=== PATIENT | male | born 1995 | race African-American/Black ===

== ENCOUNTER 2020-06-10 10:14 | Inpatient (IN) | payer OTHER ==
[~2020-06-10] VITALS: Ht 182.9 cm; Wt 80.9 kg
[2020-06-10 11:45] LABS: HEMATOCRIT 43.5 % (42.0-52.0); HEMOGLOBIN 14.1 g/dl (13.5-17.5); MEAN CORPUSCULAR HEMOGLOBIN 29.9 pg (27.0-33.0); MEAN CORPUSCULAR HGB CONC 32.4 g/dl (32.0-36.5); MEAN CORPUSCULAR VOLUME 92.2 fl (80.0-96.0); PLATELET COUNT, AUTOMATED 206 10^3/uL (150-450); RED BLOOD COUNT 4.72 10^6/uL (4.30-6.10); WHITE BLOOD COUNT 5.7 10^3/uL (4.0-10.0)
--- OUTSIDE RECORDS SUMMARY | 2020-06-10 12:08 | CCD ---
Author Author [facility] Organization [facility] Address Unknown Phone Unavailable Support Name Relationship Address Phone [facility] Next Of Kin [address] [place] [address] Unavailable KAMI IVETTE Next Of [place] [address] [place] [address] Re-disclosure Warning The records that you are about to access may contain information from federally-assisted alcohol or drug abuse programs. If such information is present, then the following federally mandated warning applies: This information has been disclosed to you from records protected by federal confidentiality rules (42 CFR part 2). The federal rules prohibit you from making any further disclosure of this information unless further disclosure is expressly permitted by the written consent of the person to whom it pertains or as otherwise permitted by 42 CFR part 2. A general authorization for the release of medical or other information is NOT sufficient for this purpose. The Federal rules restrict any use of the information to criminally investigate or prosecute any alcohol or drug abuse patient.The records that you are about to access may contain highly sensitive health information, the redisclosure of which is protected by Article 27-F of the [facility] Public Health law. If you continue you may have access to information: Regarding HIV / AIDS; Provided by facilities licensed or operated by the [facility] Office of Mental Health; or Provided by the [facility] Office for People With Developmental Disabilities. If such information is present, then the following [facility] mandated warning applies: This information has been disclosed to you from confidential records which are protected by state law. State law prohibits you from making any further disclosure of this information without the specific written consent of the person to whom it pertains, or as otherwise permitted by law. Any unauthorized further disclosure in violation of state law may result in a fine or mcc sentence or both. A general authorization for the release of medical or other information is NOT sufficient authorization for further disc losure. Insurance Providers Payer name Policy type / Coverage type Policy ID Covered libertarian ID Covered libertarian's relationship to redmond Policy Red[place] Plan Information [facility] ACTIVE [facility] [id number]
[2020-06-10 12:10] LABS: AMPHETAMINES LEVEL URINE NEGATIVE (NEGATIVE); BARBITURATES URINE NEGATIVE (NEGATIVE); BENZODIAZEPINES URINE NEGATIVE (NEGATIVE); CANNABINOIDS URINE NEGATIVE (NEGATIVE); COCAINE METABOLITE URINE NEGATIVE (NEGATIVE); METHADONE URINE NEGATIVE (NEGATIVE); OPIATES URINE NEGATIVE (NEGATIVE); PHENCYCLIDINE URINE NEGATIVE (NEGATIVE)
[2020-06-10 12:18] LABS: ACETAMINOPHEN LEVEL < 2.0 UG/ML (10.0-30.0); ALBUMIN 4.5 GM/DL (3.2-5.2); ALT/SGPT 30 U/L (12-78); BILIRUBIN,DIRECT 0.3 MG/DL (0.0-0.2); BLOOD UREA NITROGEN 16 MG/DL (7-18); CALCIUM LEVEL 10.1 MG/DL (8.5-10.1); CARBON DIOXIDE LEVEL 27 MEQ/L (21-32); CHLORIDE LEVEL 109 MEQ/L (98-107); CREATININE FOR GFR 1.32 MG/DL (0.70-1.30); ETHYL ALCOHOL (ETHANOL) < 0.003 % (0.000-0.010); GLOMERULAR FILTRATION RATE > 60.0 (>60); GLUCOSE, FASTING 96 MG/DL (70-100); POTASSIUM SERUM 4.2 MEQ/L (3.5-5.1); SALICYLATE LEVEL < 1.7 MG/DL (5.0-30.0); SODIUM LEVEL 142 MEQ/L (136-145); TOTAL PROTEIN 7.6 GM/DL (6.4-8.2)
[2020-06-10] MEDS ORDERED: MOM 30ML SUSPENSION UDC PO PRN (13:30)
[2020-06-10] MEDS ORDERED: IBUPROFEN 400MG TAB PO PRN (13:30)
[2020-06-10] MEDS ORDERED: MAALOX 30 ML SUSP *UDC PO PRN (13:30)
--- OUTSIDE RECORDS SUMMARY | 2020-06-10 13:45 | CCD ---
Author Author [facility] Organization [facility] Address Unknown Phone Unavailable Support Name Relationship Address Phone [facility] Next Of Kin [address] [address] Unavailable KAMI IVETTE Next Of [address] [place] [address] Re-disclosure Warning The records that you are [...] is protected by Article 27-F of the [facility] Public Health law. If you continue you may have access to information: Regarding HIV / AIDS; Provided by facilities licensed or operated by the [facility] Office of Mental Health; or Provided by the [facility] Office for People With Developmental Disabilities. If such information is present, then the following [facility] mandated warning applies: This information has [...] law may result in a fine or senior living sentence or both. A general authorization for the release of medical or other information is NOT sufficient authorization for further disc losure. Insurance Providers Payer name Policy type / Coverage type Policy ID Covered libertarian ID Covered libertarian's relationship to redmond Policy Red[place] Plan Information [facility]IVE [facility] [id number]
[2020-06-10 18:18] VITALS: BP 119/59
[2020-06-10] MEDS: traZODone 50 MG TAB PO PRN (20:05)
[2020-06-11 06:02] VITALS: BP 154/64
--- NOTE | 2020-06-11 11:18 | MHHPEPDOC ---
General Date Of Admission: Jun 11, 2020 Legal Status: 9.39 Chief Complaint I am depressed and thinking of suicide " History of Present Illness HISTORY OF THE PRESENT ILLNESS: Patient is a 24 -year-old , male, who complains of depression with suicidal thoughts. He states she's been wanting to slit his wrists. He has been in basic training. He states that when he was 19. He was hospitalized with a plan to jump off a bridge. He also in the past has held a knife to his chest. His plan to jump off a bridge occurred when he was in [employer]. He also has had numerous highs where he has been overactive and grandiose. These highs have lasted for over 2 weeks he noticed he has had that condition for a couple of years. He states he was hospitalized for a week, 4-5 years ago and was put on lithium, but he did not take it. 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 He has a degree in political science. He is now very depressed. He has lived in [place]. He states, "there is a rizvi in his head". He has no significant medical history he has had a history of surgery to his on any. He has had legal issue where he was charged with a misdemeanor for using drugs. He denies drug use now or alcohol use. He had a slight concussion in April. Presently denies auditory hallucinations. He denies visual hallucinations, obsessions, compulsions, phobias, but feels he is preoccupied with the past and suicidal gestures and attempts he has made. He considers that he has bipolar disorder, which is also included episodes of high and low sex drive Psychiatric Review of Systems Depression (2 or more weeks): depressed mood, suicidal thoughts Griselda (4 or more days of): expansive mood, grandiosity Psychosis: denies PTSD: denies Anxiety: denies Past Psychiatric History Previous Psychiatric Diagnosis: He has been diagnosed with bipolar disorder, but did not take medication. Previous Psychiatric Admissions:. He was hospitalized 5 years ago. Suicide Attempts:. He has had numerous suicide gestures and attempts. Psychiatric Follow-up:. No follow-up. Psychiatric medications:, Has not taken medications. Past Medical History Medical Problems No significant medical problems Head Injury: Yes Seizures: No Hospitalizations: Yes Surgeries: Yes Family Medical/Psychiatric HX Medical Problems Patient is adopted and family medical history unclear. He states his biological father is in half-way and his mother has been in and out of hospitals and recently. The patient is unable to know if there was psychiatric disorders involved Psychiatric Disorders: Yes Addiction: No Suicide Attemps/Completions: No Addiction History denies Social History Childhood: Patient was adopted and was moved to [facility] and felt his childhood was difficult in that he "did not fit in.". Abuse/Trauma: None described. Current Living Situation:. [employer]. Education: Bachelor's in [employer] science. Employment: [employer]. Social Support:. No obvious social support. Legal:, No obvious legal history. Marital: Single. Mental Status Examination General Appearance: well groomed Build: average Demeanor: average Eye Contact: average Activity: average Behavior: cooperative Speech: clear Mood: depressed Mood Presently depressed Affect: flat Thought Process: slow, intact Thought Content (Other): appropriate Thought Content (Aggressive): none reported Perception (Hallucinations): none reported Perception (Other): none reported Cognition (Impairment of): none reported Cognition(Intelligence Est.): average, above average Oriented: Awake, Alert, Oriented times three Insight: fair Judgment: Fair Psychosis: Denies Diagnoses Bipolar disorder, depressed A-FIB/CHADSVASC A-FIB History Current/History of A-Fib/PAF?: No Current PO Anticoag Therapy: No Age/Risk Factor Scoring CHADSVASC: CHADSVASC Response (Comments) Value Age Risk Factor Age < 65 years old 0 Gender Risk Factor Male 0 Hx of CHF No 0 Hx of HTN No 0 Hx of Stroke/TIA/or VTE No 0 Hx of Diabetes No 0 Hx of Vascular Disease No 0 Total 0 Treatment Treatment ordered: NONE Initial Treatment Plan 1. Patient was admitted on a [9.39] status. 2. Complete history was obtained. 3. With patients permission, family will be contacted and database will be expanded. 4. Patients medication regimen will be reviewed and changed accordingly. 5. Patient will be provided with protected environment. 6. Patient will be treated with individual, group, and milieu therapies. 7. Patient will receive supportive psych-education. 8. Discharge planning will commence immediately. 9. Outpatient follow-up treatment will be strongly recommended. 10. The initial treatment plan will focus initially on: * Depression. * Risk for suicide. ESTIMATED LENGTH OF STAY: - DAYS. TIME SPENT COUNSELING AND COORDINATING INITIAL CARE: minutes. Vital Signs Vital Signs Date Time Temp Pulse Resp B/P (MAP) Pulse Ox O2 Delivery O2 Flow Rate FiO2 06/11/20 06:02 98.5 76 18 154/64 (94) 96 Room Air Laboratory Data 24H Labs Laboratory Tests 2 06/10/20 11:27: Nucleated Red Blood Cells % (auto) 0.0, Anion Gap 6L, Glomerular Filtration Rate > 60.0, Calcium Level 10.1, Total Bilirubin 1.0, Direct Bilirubin 0.3H, Aspartate Amino Transf (AST/SGOT) 39H, Alanine Aminotransferase (ALT/SGPT) 30, Alkaline Phosphatase 62, Total Protein 7.6, Albumin 4.5, Albumin/Globulin Ratio 1.5, Thyroid Stimulating Hormone (TSH) 1.230, Salicylates Level < 1.7L, Urine Opiates Screen NEGATIVE, Urine Methadone Screen NEGATIVE, Acetaminophen Level < 2.0L, Urine Barbiturates Screen NEGATIVE, Urine Phencyclidine Screen NEGATIVE, Urine Amphetamines Screen NEGATIVE, Urine Benzodiazepines Screen NEGATIVE, Urine Cocaine Metabolite Screen NEGATIVE, Urine Cannabinoids Screen NEGATIVE, Ethyl Alcohol Level < 0.003 06/10/20 13:55: Coronavirus (COVID-19)(PCR) NEGATIVE CBC/BMP Laboratory Tests 06/10/20 11:27 Medications No Active Prescriptions or Reported Meds Allergies Coded Allergies: amoxicillin (Verified Allergy, Intermediate, hives, 06/10/20) ELLI CORNEJO MD Jun 11, 2020 11:18
--- NOTE | 2020-06-11 19:07 | HPEPDOC ---
General Date of Admission Jun 10, 2020 at 13:30 Date of Service: Jun 11, 2020 Chief Complaint The patient is a 24-year-old male admitted with a reason for visit of Depressive Disorder. 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 He is being medically examined today. He does not offer any complaints today. Home Medications No Active Prescriptions or Reported Meds Allergies Coded Allergies: amoxicillin (Verified Allergy, Intermediate, hives, 06/10/20) Past Medical History Medical History Depression, Griselda Surgical History lazy eye surgery, umbilical hernia repair as a child Family History Patient is adopted and family medical history unclear. He states his biological father is in skilled nursing and his mother has been in and out of hospitals and recently. Social History * Smoker: chew (tobacco) Alcohol: Denies Drugs: denies A-FIB/CHADSVASC A-FIB History Current/History of A-Fib/PAF?: No Review of Systems Constitutional: Denies: Chills, Fever, Night Sweats Eyes: Denies: Pain, Vision change ENT: Denies: Head Aches, Ear Pain, Dysphagia Skin: Denies: Rash, Lesions, Breakdown Pulmonary: Denies: Dyspnea, Cough Cardiovascular: Denies: Chest Pain, Palpitations, Orthopnea, Paroxysmal Noc. Dyspnea, Lt Headedness Gastrointestinal: Denies: Nausea, Vomiting, Abdominal Pain, Diarrhea Genitourinary: Denies: Dysuria, Frequency, Incontinence, Retention Hematologic: Denies: Bruising, Bleeding Excessively Musculoskeletal: Denies: Neck Pain, Back Pain, Joint Pain, Muscle Pain, Spasms Neurological: Denies: Weakness, Numbness, Change in speech, Confusion Psych: Reports: Depression; Denies: Memory Issues Physical Examination General Exam: Positive: Alert, No Acute Distress Eye Exam: Positive: PERRLA, Conjunctiva & lids normal, EOMI; Negative: Sclera icteric ENT Exam: Positive: Atraumatic, Mucous membr. moist/pink, Pharynx Normal Neck Exam: Positive: Supple; Negative: JVD, thyromegaly Chest Exam: Positive: Clear to auscultation, Normal air movement Heart Exam: Positive: Rate Normal, Regular Rhythm, Normal S1, Normal S2; Negative: Murmurs, Rubs Abdomen Exam: Positive: Normal bowel sounds, Soft; Negative: Tenderness, Hepatospenomegaly Extremity Exam: Positive: Normal pulses; Negative: Clubbing, Cyanosis, Edema Skin Exam: Positive: Nl turgor and temperature; Negative: Breakdown, Lesion Vital Signs Vital Signs Date Time Temp Pulse Resp B/P (MAP) Pulse Ox O2 Delivery O2 Flow Rate FiO2 06/11/20 06:02 98.5 76 18 154/64 (94) 96 Room Air 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 He does not offer any complaints today. Depression as per psychiatry No active medical problems at this time Plan / VTE VTE Prophylaxis Ordered?: No SPRING MCCARTHY MD Jun 11, 2020 17:18
[2020-06-11 19:10] VITALS: BP 131/72
[2020-06-11] MEDS: traZODone 50 MG TAB PO PRN (20:11)
[2020-06-12 06:11] VITALS: BP 124/76
--- NOTE | 2020-06-12 16:42 | MHIPNPDOC ---
[facility] Progress Note Progress Note DATE OF SERVICE: 06/12/20 HISTORY: Describes a long-standing history of bipolar disorder, untreated. Presently under stress with responsibilities in the [employer]. VITAL SIGNS: See below. NEW TEST RESULTS: . CURRENT MEDICATIONS: See below. MENTAL STATUS EXAMINATION: Patient is a 24-year old male, who is, complaining of severe mood swings, untreated for many years. Speech: Is, quiet. Language skills are, intact. Thought processes including:, Low mood and the stress of the [employer]. Thought content: As above. Abstract reasoning, and computation:. able to Abstract. Description of associations: No loose association. Description of abnormal or psychotic thoughts:. No psychotic thought noted. Judgment: Fair. Insight:. fair Orientation: 3. Recent and remote memory: Intact. Attention span and concentration:. Diminished. Language: Intact. Fund of knowledge: Full. Mood:, Low. Affect: Congruent. DIAGNOSES: 1. Bipolar disorder. 2., Stressors of the [employer]. 3. None. ASSESSMENT: As above MANAGEMENT PLAN:, We will begin Depakote and fluoxetine as attempt to treat his mood disorder. TIME SPENT: 30 minutes. Vital Signs Vital Signs Date Time Temp Pulse Resp B/P (MAP) Pulse Ox O2 Delivery O2 Flow Rate FiO2 06/12/20 06:11 97.7 62 18 124/76 (92) 100 Room Air Current Medications Current Medications Medications (Trade) Dose Ordered Sig/Pedro Route PRN Reason Start Time Stop Time Status Last Admin Dose Admin Al Hydrox/Mg Hydrox/Simethicone (Mylanta) 30 ml Q4HP PRN PO HEARTBURN/INDIGESTION 06/10/20 13:30 Divalproex Sodium (Depakote Er) 250 mg BID PO 06/12/20 21:00 UNV Fluoxetine HCl (PROzac) 20 mg DAILY PO 06/13/20 09:00 UNV Home Med (Med Rec Complete!) ASDIRECTED XX 06/10/20 13:25 06/10/20 13:31 DC Ibuprofen (Advil) 400 mg Q6HP PRN PO PAIN 06/10/20 13:30 Magnesium Hydroxide (Milk Of Magnesia) 30 ml DAILYPRN PRN PO CONSTIPATION 06/10/20 13:30 Trazodone HCl (Desyrel) 50 mg QHSP PRN PO INSOMNIA 06/10/20 13:30 06/11/20 20:11 Allergies Coded Allergies: amoxicillin (Verified Allergy, Intermediate, hives, 06/10/20) ELLI CORNEJO MD Jun 12, 2020 16:42
[2020-06-12 17:28] VITALS: BP 141/67
[2020-06-12] MEDS ORDERED: DIVALPROEX 250MG *ER* TAB PO SCH (21:00)
[2020-06-13 06:27] VITALS: BP 135/77
[2020-06-13] MEDS: DIVALPROEX 250MG *ER* TAB PO SCH ×3 (09:45→20:46)
[2020-06-13] MEDS: FLUoxetine 20 MG CAP PO SCH (09:45)
--- NOTE | 2020-06-13 14:11 | MHIPNPDOC ---
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 VITAL SIGNS: See below. NEW TEST RESULTS: None. CURRENT MEDICATIONS: See below. MENTAL STATUS EXAMINATION: Patient is a 24-year old male, who is having difficulties in the [employer] and presenting with a case of bipolar disorder of many years untreated. Speech: Is, quiet. Language skills are intact Thought processes including:. No disturbances in thought processes. Patient is depressed. Thought content: As above. Abstract reasoning, and computation:.able to Abstract. Description of associations: No loose association. Description of abnormal or psychotic thoughts:. No psychotic thought noted. Judgment:. Fair. Insight: Fair. Orientation: 3. Recent and remote memory: Intact. Attention span and concentration:. Intact. Language: No disturbance. Fund of knowledge: Full. Mood: Euthymic. Affect:, Flat. DIAGNOSES: 1. Bipolar disorder by history. 2., Stressors of [employer] life. 3. none ASSESSMENT: As above MANAGEMENT PLAN:. Continue use of Depakote and monitor. TIME SPENT: 30 minutes. Vital Signs Vital Signs Date Time Temp Pulse Resp B/P (MAP) Pulse Ox O2 Delivery O2 Flow Rate FiO2 06/13/20 08:50 Room Air 06/13/20 06:27 98.4 67 14 135/77 (96) 98 Current Medications Current Medications Medications (Trade) Dose Ordered Sig/Pedro Route PRN Reason Start Time Stop Time Status Last Admin Dose Admin Al Hydrox/Mg Hydrox/Simethicone (Mylanta) 30 ml Q4HP PRN PO HEARTBURN/INDIGESTION 06/10/20 13:30 Divalproex Sodium (Depakote Er) 250 mg BID PO 06/12/20 21:00 06/13/20 07:33 DC 06/12/20 22:01 Divalproex Sodium (Depakote Er) 250 mg TID PO 06/13/20 09:00 06/13/20 09:45 Fluoxetine HCl (PROzac) 20 mg DAILY PO 06/13/20 09:00 06/13/20 09:45 Home Med (Med Rec Complete!) ASDIRECTED XX 06/10/20 13:25 06/10/20 13:31 DC Ibuprofen (Advil) 400 mg Q6HP PRN PO PAIN 06/10/20 13:30 Magnesium Hydroxide (Milk Of Magnesia) 30 ml DAILYPRN PRN PO CONSTIPATION 06/10/20 13:30 Trazodone HCl (Desyrel) 50 mg QHSP PRN PO INSOMNIA 06/10/20 13:30 06/11/20 20:11 Allergies Coded Allergies: amoxicillin (Verified Allergy, Intermediate, hives, 06/10/20) ELLI CORNEJO MD Jun 13, 2020 13:03
[2020-06-13 16:51] VITALS: BP 129/89
[2020-06-13] MEDS: traZODone 50 MG TAB PO PRN (20:46)
[2020-06-14 06:48] VITALS: BP 144/64
[2020-06-14] MEDS: FLUoxetine 20 MG CAP PO SCH (08:15)
[2020-06-14] MEDS: DIVALPROEX 250MG *ER* TAB PO SCH ×3 (08:16→20:55)
--- NOTE | 2020-06-14 16:58 | MHIPNPDOC ---
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 VITAL SIGNS: See below. NEW TEST RESULTS:. Depakote level ordered for Monday. CURRENT MEDICATIONS: See below. MENTAL STATUS EXAMINATION: Patient is a 24-year old male, who is. Euthymic but feeling his medications are helping. Speech: Is. No gross abnormalities. Language skills are. No gross abnormalities. Thought processes including: No gross abnormalities. Thought content: Concerned about army life. Abstract reasoning, and computation: Able to abstract. Description of associations: no Loose associations. Description of abnormal or psychotic thoughts: No abnormal psychotic thought. Judgment: Questionable. Insight:. Fair. Orientation: 3. Recent and remote memory: Intact. Attention span and concentration: Intact. Language:. No gross abnormality. Fund of knowledge: Reasonable. Mood: Good. Affect: Flat. DIAGNOSES: 1.. Bipolar disorder by history. 2., Stressors of army life. 3. None. ASSESSMENT:, As above MANAGEMENT PLAN:, Will meet with staff. Continue medications. Depakote level Monday. TIME SPENT: 30 minutes. Vital Signs Vital Signs Date Time Temp Pulse Resp B/P (MAP) Pulse Ox O2 Delivery O2 Flow Rate FiO2 06/14/20 08:25 Room Air 06/14/20 06:48 98.0 80 16 144/64 (90) 99 Current Medications Current Medications Medications (Trade) Dose Ordered Sig/Pedro Route PRN Reason Start Time Stop Time Status Last Admin Dose Admin Al Hydrox/Mg Hydrox/Simethicone (Mylanta) 30 ml Q4HP PRN PO HEARTBURN/INDIGESTION 06/10/20 13:30 Divalproex Sodium (Depakote Er) 250 mg BID PO 06/12/20 21:00 06/13/20 07:33 DC 06/12/20 22:01 Divalproex Sodium (Depakote Er) 250 mg TID PO 06/13/20 09:00 06/14/20 16:01 Fluoxetine HCl (PROzac) 20 mg DAILY PO 06/13/20 09:00 06/14/20 08:15 Home Med (Med Rec Complete!) ASDIRECTED XX 06/10/20 13:25 06/10/20 13:31 DC Ibuprofen (Advil) 400 mg Q6HP PRN PO PAIN 06/10/20 13:30 Magnesium Hydroxide (Milk Of Magnesia) 30 ml DAILYPRN PRN PO CONSTIPATION 06/10/20 13:30 Trazodone HCl (Desyrel) 50 mg QHSP PRN PO INSOMNIA 06/10/20 13:30 06/13/20 20:46 Allergies Coded Allergies: amoxicillin (Verified Allergy, Intermediate, hives, 06/10/20) ELLI CORNEJO MD Jun 14, 2020 16:58
[2020-06-14 18:39] VITALS: BP 150/76
[2020-06-14] MEDS: traZODone 50 MG TAB PO PRN (20:55)
[2020-06-15 06:26] VITALS: BP 127/62
[2020-06-15] MEDS: FLUoxetine 20 MG CAP PO SCH (08:39)
[2020-06-15] MEDS: DIVALPROEX 250MG *ER* TAB PO SCH ×3 (08:39→20:43)
--- NOTE | 2020-06-15 14:24 | MHIPNPDOC ---
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 VITAL SIGNS: See below. NEW TEST RESULTS:. None. CURRENT MEDICATIONS: See below. MENTAL STATUS EXAMINATION: Patient is a 24-year old male, who is presenting with an untreated bipolar disorder. Speech: Is, quiet, sparse. Language skills . No gross abnormality. Thought processes including: States he is feeling well with no side effects. Thought content: Concerned about diagnosis. Abstract reasoning, and computation: Able to abstract and compute. Description of associations: Has no loose association. Description of abnormal or psychotic thoughts:. No abnormal or psychotic thoughts noted. Judgment:. Fair. Insight: Fair. Orientation: 3. Recent and remote memory: Intact. Attention span and concentration: Intact. Language: No gross disturbance. Fund of knowledge: Reasonable. Mood: Euthymic. Affect:, Flat. DIAGNOSES: 1. Bipolar disorder by history. 2.. Depression. 3., Stressors of army life. ASSESSMENT: As above MANAGEMENT PLAN:. Continued observation and medication. TIME SPENT: 30 minutes. Vital Signs Vital Signs Date Time Temp Pulse Resp B/P (MAP) Pulse Ox O2 Delivery O2 Flow Rate FiO2 06/15/20 06:26 98.4 66 20 127/62 (83) 96 Room Air Laboratory Data 24H Labs Laboratory Tests 2 06/15/20 07:36: Valproic Acid (Depakene) Level 80.4 Current Medications Current Medications Medications (Trade) Dose Ordered Sig/Pedro Route PRN Reason Start Time Stop Time Status Last Admin Dose Admin Al Hydrox/Mg Hydrox/Simethicone (Mylanta) 30 ml Q4HP PRN PO HEARTBURN/INDIGESTION 06/10/20 13:30 Divalproex Sodium (Depakote Er) 250 mg BID PO 06/12/20 21:00 06/13/20 07:33 DC 06/12/20 22:01 Divalproex Sodium (Depakote Er) 250 mg TID PO 06/13/20 09:00 06/15/20 08:39 Fluoxetine HCl (PROzac) 20 mg DAILY PO 06/13/20 09:00 06/15/20 08:39 Home Med (Med Rec Complete!) ASDIRECTED XX 06/10/20 13:25 06/10/20 13:31 DC Ibuprofen (Advil) 400 mg Q6HP PRN PO PAIN 06/10/20 13:30 Magnesium Hydroxide (Milk Of Magnesia) 30 ml DAILYPRN PRN PO CONSTIPATION 06/10/20 13:30 Trazodone HCl (Desyrel) 50 mg QHSP PRN PO INSOMNIA 06/10/20 13:30 06/14/20 20:55 Allergies Coded Allergies: amoxicillin (Verified Allergy, Intermediate, hives, 06/10/20) ELLI CORNEJO MD Jun 15, 2020 14:24
[2020-06-15 16:24] VITALS: BP 134/66
[2020-06-15] MEDS: traZODone 50 MG TAB PO PRN (20:44)
[2020-06-16 06:04] VITALS: BP 122/59
[2020-06-16] MEDS: FLUoxetine 20 MG CAP PO SCH (08:56)
[2020-06-16] MEDS: DIVALPROEX 250MG *ER* TAB PO SCH ×3 (08:56→20:36)
--- NOTE | 2020-06-16 15:15 | MHIPNPDOC ---
[facility] Progress Note Progress Note DATE OF SERVICE: 06/16/20 HISTORY: 24-year-old male with untreated bipolar disorder and [employer] stressors. VITAL SIGNS: See below. NEW TEST RESULTS: Depakote level 80.4. CURRENT MEDICATIONS: See below. MENTAL STATUS EXAMINATION: Patient is a 24-year old male, who is stating he is in improved mood. Speech: Is. No disturbance. Language skills are intact. Thought processes including: As above. Thought content:. Feels his mood is stable. Abstract reasoning, and comput ation:, Able to abstract. Description of associations:. No loose association. Description of abnormal or psychotic thoughts:. No psychotic thought. Judgment: Good. Insight: Good. Orientation: 3. Recent and remote memory: intact. Attention span and concentration: Intact. Language:. No disturbance. Fund of knowledge: Full. Mood: Euthymic. Affect:, Congruent. DIAGNOSES: 1. Bipolar disorder, depressed. 2., None. 3. None. ASSESSMENT: As above MANAGEMENT PLAN:. Continue to monitor meds and discharge. TIME SPENT: 35 minutes. Vital Signs Vital Signs Date Time Temp Pulse Resp B/P (MAP) Pulse Ox O2 Delivery O2 Flow Rate FiO2 06/16/20 06:04 97.4 71 16 122/59 (80) 96 Room Air Current Medications Current Medications Medications (Trade) Dose Ordered Sig/Pedro Route PRN Reason Start Time Stop Time Status Last Admin Dose Admin Al Hydrox/Mg Hydrox/Simethicone (Mylanta) 30 ml Q4HP PRN PO HEARTBURN/INDIGESTION 06/10/20 13:30 Divalproex Sodium (Depakote Er) 250 mg BID PO 06/12/20 21:00 06/13/20 07:33 DC 06/12/20 22:01 Divalproex Sodium (Depakote Er) 250 mg TID PO 06/13/20 09:00 06/16/20 08:56 Fluoxetine HCl (PROzac) 20 mg DAILY PO 06/13/20 09:00 06/16/20 08:56 Home Med (Med Rec Complete!) ASDIRECTED XX 06/10/20 13:25 06/10/20 13:31 DC Ibuprofen (Advil) 400 mg Q6HP PRN PO PAIN 06/10/20 13:30 Magnesium Hydroxide (Milk Of Magnesia) 30 ml DAILYPRN PRN PO CONSTIPATION 06/10/20 13:30 Trazodone HCl (Desyrel) 50 mg QHSP PRN PO INSOMNIA 06/10/20 13:30 06/15/20 20:44 Allergies Coded Allergies: amoxicillin (Verified Allergy, Intermediate, hives, 06/10/20) ELLI CORNEJO MD Jun 16, 2020 15:15
[2020-06-16 16:50] VITALS: BP 140/84
[2020-06-16] MEDS: traZODone 50 MG TAB PO PRN (20:36)
[2020-06-17 06:43] VITALS: BP 132/67
[2020-06-17] MEDS: DIVALPROEX 250MG *ER* TAB PO SCH ×3 (07:57→20:09)
[2020-06-17] MEDS: FLUoxetine 20 MG CAP PO SCH (07:57)
--- NOTE | 2020-06-17 16:22 | MHIPNPDOC ---
[facility] Progress Note Progress Note DATE OF SERVICE: 06/17/20 HISTORY: 24-year-old male with bipolar disorder by history. VITAL SIGNS: See below. NEW TEST RESULTS: None. CURRENT MEDICATIONS: See below. MENTAL STATUS EXAMINATION: Patient is a, 24-year old male, who is somewhat flat and euthymic. Speech: Is. No gross disturbance. Language skills are. No gross disturbance. Thought processes including:. No gross disturbance. Thought content:. No gross disturbance. Abstract reasoning, and computation:, Somewhat concrete. Description of associations:. No loose association. Description of abnormal or psychotic thoughts:. No abnormal or psychotic thoughts. Judgment:. Fair. Insight: Fair. Orientation: 3. Recent and remote memory:. No disturbance. Attention span and concentration: Fair. Language:. No gross disturbance. Fund of knowledge: Reasonable. Mood: Euthymic. Affect:, Neutral, congruent. DIAGNOSES: 1. Bipolar disorder. 2., Stressors of army life. 3. None ASSESSMENT: As above MANAGEMENT PLAN:. Will discharge back to [place] TIME SPENT: 35 minutes. Vital Signs Vital Signs Date Time Temp Pulse Resp B/P (MAP) Pulse Ox O2 Delivery O2 Flow Rate FiO2 06/17/20 06:43 97.7 81 18 132/67 (88) 98 Room Air Laboratory Data 24H Labs Laboratory Tests 2 06/16/20 19:07: Valproic Acid (Depakene) Level 85.3 Current Medications Current Medications Medications (Trade) Dose Ordered Sig/Pedro Route PRN Reason Start Time Stop Time Status Last Admin Dose Admin Al Hydrox/Mg Hydrox/Simethicone (Mylanta) 30 ml Q4HP PRN PO HEARTBURN/INDIGESTION 06/10/20 13:30 Divalproex Sodium (Depakote Er) 250 mg BID PO 06/12/20 21:00 06/13/20 07:33 DC 06/12/20 22:01 Divalproex Sodium (Depakote Er) 250 mg TID PO 06/13/20 09:00 06/17/20 15:13 Fluoxetine HCl (PROzac) 20 mg DAILY PO 06/13/20 09:00 06/17/20 07:57 Home Med (Med Rec Complete!) ASDIRECTED XX 06/10/20 13:25 06/10/20 13:31 DC Ibuprofen (Advil) 400 mg Q6HP PRN PO PAIN 06/10/20 13:30 Magnesium Hydroxide (Milk Of Magnesia) 30 ml DAILYPRN PRN PO CONSTIPATION 06/10/20 13:30 Trazodone HCl (Desyrel) 50 mg QHSP PRN PO INSOMNIA 06/10/20 13:30 06/16/20 20:36 Allergies Coded Allergies: amoxicillin (Verified Allergy, Intermediate, hives, 06/10/20) ELLI CORNEJO MD Jun 17, 2020 16:22
[2020-06-17 16:32] VITALS: BP 134/71
[2020-06-17] MEDS: traZODone 50 MG TAB PO PRN (20:09)
[2020-06-18 06:27] VITALS: BP 129/74
[2020-06-18] MEDS: DIVALPROEX 250MG *ER* TAB PO SCH ×3 (08:06→20:16)
[2020-06-18] MEDS: FLUoxetine 20 MG CAP PO SCH (08:06)
--- NOTE | 2020-06-18 16:07 | MHIPNPDOC ---
[facility] Progress Note Progress Note DATE OF SERVICE: 06/18/20 HISTORY: 24-year-old male with history of bipolar disorder. Awaiting return for trauma. VITAL SIGNS: See below. NEW TEST RESULTS: None. CURRENT MEDICATIONS: See below. MENTAL STATUS EXAMINATION: Patient is a 24-year old male, who is, presently euthymic. Speech: No gross disturbance. Language skills are gross disturbance. Thought processes including:. No abnormal thought processes. Thought content: Feels well. Abstract reasoning, and computation:. No problem with abstraction or computation. Description of associations:. No loose associat ion. Description of abnormal or psychotic thoughts:. No abnormal or psychotic thought. Judgment:.fair Insight., Adequate Orientation: 3, . Recent and remote memory: Intact. Attention span and concentration:. No disturbance. Language:. No gross disturbance. Fund of knowledge:, Adequate. Mood: Euthymic. Affect:, Congruent. DIAGNOSES: 1. Bipolar disorder. 2. Stressors of army life. 3. None. ASSESSMENT: As above MANAGEMENT PLAN: Discharge to [facility]. TIME SPENT: 35 minutes. Vital Signs Vital Signs Date Time Temp Pulse Resp B/P (MAP) Pulse Ox O2 Delivery O2 Flow Rate FiO2 06/18/20 06:27 97.1 78 16 129/74 (92) 97 Room Air Current Medications Current Medications Medications (Trade) Dose Ordered Sig/Pedro Route PRN Reason Start Time Stop Time Status Last Admin Dose Admin Al Hydrox/Mg Hydrox/Simethicone (Mylanta) 30 ml Q4HP PRN PO HEARTBURN/INDIGESTION 06/10/20 13:30 Divalproex Sodium (Depakote Er) 250 mg BID PO 06/12/20 21:00 06/13/20 07:33 DC 06/12/20 22:01 Divalproex Sodium (Depakote Er) 250 mg TID PO 06/13/20 09:00 06/18/20 08:06 Fluoxetine HCl (PROzac) 20 mg DAILY PO 06/13/20 09:00 06/18/20 08:06 Home Med (Med Rec Complete!) ASDIRECTED XX 06/10/20 13:25 06/10/20 13:31 DC Ibuprofen (Advil) 400 mg Q6HP PRN PO PAIN 06/10/20 13:30 Magnesium Hydroxide (Milk Of Magnesia) 30 ml DAILYPRN PRN PO CONSTIPATION 06/10/20 13:30 Trazodone HCl (Desyrel) 50 mg QHSP PRN PO INSOMNIA 06/10/20 13:30 06/17/20 20:09 Allergies Coded Allergies: amoxicillin (Verified Allergy, Intermediate, hives, 06/10/20) ELLI CORNEJO MD Jun 18, 2020 16:07
[2020-06-18 17:23] VITALS: BP 132/66
[2020-06-19 05:51] VITALS: BP 134/70
[2020-06-19] MEDS ORDERED: FLUO20CA22 PO (07:51)
[2020-06-19] MEDS ORDERED: DEPA250T2 PO (07:51)
[2020-06-19] MEDS: DIVALPROEX 250MG *ER* TAB PO SCH (07:55)
[2020-06-19] MEDS: FLUoxetine 20 MG CAP PO SCH (07:55)
--- NOTE | 2020-06-19 10:55 | MHDSPDOC ---
[facility] Discharge Summary Discharge Summary DATE OF ADMISSION: Jun 10, 2020 at 13:30 DATE OF DISCHARGE: Jun 19, 2020 at 09:32 DISCHARGE DIAGNOSES: 1. Bipolar disorder. 2., Stressors of army life. REASON FOR ADMISSION: Depression, suicidal thoughts with past history of self- harm CONSULTANTS INVOLVED:. None TREATMENT AND PROGRESS ON THE UNIT : Recent. Described history of severe mood disorders. He described manic phases and hospitalization in the past. HOSPITAL COURSE:, Patient was cooperative, did not demonstrate manic phases but was depressed and treated with bipolar medication and antidepressant DISCHARGE ASSESSMENT:. Bipolar disorder by history, significantly improved on unit and mood stable MENTAL STATUS EXAMINATION ON DISCHARGE: Patient is a. 24-year old male, who is on discharge is euthymic. Depression was noted on admission, but euthymic through his stay. Speech is slow and quiet. Language skills are. No disturbance. Thought processes including:. No gross disturbance. Thought content:. No gross disturbance. Abstract reasoning, and computation: Able to abstract. Description of associations:. No loose association. Description of abnormal or psychotic thoughts: No psychotic thought. Judgment: Improved. Insight:, Improved. Orientation to 3. Recent and remote memory: Intact. Attention span and concentration: Improved. Language:. No gross disturbance. Fund of knowledge: Reasonable. Mood: Euthymic. Affect:, Neutral. MEDICATIONS ON DISCHARGE: -, Depakote 250 3 times a day for mood stabilization -Prozac 20 daily for mood. PLAN/FOLLOWUP ARRANGEMENTS: Return to [place]. Suggested due to history patient be maintained on bipolar medications The amount of time spent in the coordination of care for this patient was approximately 35 minutes. ETOH/Disorder Med Rx ETOH/DRUG DISORDER RX: N/A Vital Signs/I&Os Vital Signs Date Time Temp Pulse Resp B/P (MAP) Pulse Ox O2 Delivery O2 Flow Rate FiO2 06/19/20 05:51 97.6 88 16 134/70 (91) 97 Room Air Medications Scheduled Divalproex Sodium (Depakote ER) 250 Mg Tab.er.24h, 250 MG PO TID for mood, #30 Fluoxetine Hcl (Fluoxetine HCl) 20 Mg Capsule, 20 MG PO DAILY for Mood, #10 Allergies Coded Allergies: amoxicillin (Verified Allergy, Intermediate, hives, 06/10/20) ELLI CORNEJO MD Jun 19, 2020 10:55
== END 2020-06-19 09:32 | disposition home or self-care (01) | DRG 885 ==
LOC: M ED 10:14 → M ED INP 13:30 → M PSY 18:29
PROVIDERS: ADMIT Psychiatry & Neurology Child & Adolescent Psychiatry; ATTEND Psychiatry & Neurology Child & Adolescent Psychiatry
DX: F31.9 Bipolar disorder, unspecified (principal); R45.851 Suicidal ideations; Z88.0 Allergy status to penicillin; Z79.899 Other long term (current) drug therapy

== ENCOUNTER 2020-07-10 11:05 | Inpatient (IN) | payer OTHER ==
[~2020-07-10] VITALS: Ht 182.9 cm; Wt 80.8 kg
[~2020-07-10 11:05] MED LIST: DEPA250T2 PO; FLUO20CA22 PO
[2020-07-10 11:38] LABS: HEMATOCRIT 40.2 % (42.0-52.0); HEMOGLOBIN 13.5 g/dl (13.5-17.5); MEAN CORPUSCULAR HEMOGLOBIN 31.4 pg (27.0-33.0); MEAN CORPUSCULAR HGB CONC 33.6 g/dl (32.0-36.5); MEAN CORPUSCULAR VOLUME 93.5 fl (80.0-96.0); PLATELET COUNT, AUTOMATED 178 10^3/uL (150-450); WHITE BLOOD COUNT 5.9 10^3/uL (4.0-10.0)
[2020-07-10 12:14] LABS: ACETAMINOPHEN LEVEL < 2.0 UG/ML (10.0-30.0); ALBUMIN 4.1 GM/DL (3.2-5.2); ALT/SGPT 15 U/L (12-78); BILIRUBIN,DIRECT 0.1 MG/DL (0.0-0.2); BILIRUBIN,TOTAL 0.5 MG/DL (0.2-1.0); BLOOD UREA NITROGEN 16 MG/DL (7-18); CALCIUM LEVEL 9.7 MG/DL (8.5-10.1); CARBON DIOXIDE LEVEL 29 MEQ/L (21-32); CHLORIDE LEVEL 108 MEQ/L (98-107); CREATININE FOR GFR 1.01 MG/DL (0.70-1.30); ETHYL ALCOHOL (ETHANOL) < 0.003 % (0.000-0.010); GLOMERULAR FILTRATION RATE > 60.0 (>60); GLUCOSE, FASTING 101 MG/DL (70-100); POTASSIUM SERUM 4.3 MEQ/L (3.5-5.1); SALICYLATE LEVEL < 1.7 MG/DL (5.0-30.0); SODIUM LEVEL 142 MEQ/L (136-145); THYROID STIMULATING HORMONE 0.963 uIU/ML (0.358-3.740); TOTAL PROTEIN 7.1 GM/DL (6.4-8.2)
[2020-07-10 16:31] LABS: AMPHETAMINES LEVEL URINE NEGATIVE (NEGATIVE); BARBITURATES URINE NEGATIVE (NEGATIVE); BENZODIAZEPINES URINE NEGATIVE (NEGATIVE); CANNABINOIDS URINE NEGATIVE (NEGATIVE); COCAINE METABOLITE URINE NEGATIVE (NEGATIVE); METHADONE URINE NEGATIVE (NEGATIVE); OPIATES URINE NEGATIVE (NEGATIVE); PHENCYCLIDINE URINE NEGATIVE (NEGATIVE)
[2020-07-10] MEDS ORDERED: FLUO20CA20 PO (18:41)
[2020-07-10] MEDS ORDERED: DIVA250T7 PO (18:41)
[2020-07-10 19:37] LABS: RSV AMPLIFICATION NEGATIVE (NEGATIVE)
[2020-07-10] MEDS: DIVALPROEX 250MG *ER* TAB PO SCH (21:00)
[2020-07-11] MEDS ORDERED: ACETAMINOPHEN TAB 650MG DOSE (2X325MG) PO PRN (01:35)
[2020-07-11] MEDS ORDERED: MOM 30ML SUSPENSION UDC PO PRN (01:35)
[2020-07-11] MEDS ORDERED: MAALOX 30 ML SUSP *UDC PO PRN (01:35)
[2020-07-11] MEDS ORDERED: traZODone 50 MG TAB PO PRN (01:35)
[2020-07-11 02:25] VITALS: BP 133/80
[2020-07-11] MEDS: DIVALPROEX 250MG *ER* TAB PO SCH ×3 (09:01→20:11)
[2020-07-11] MEDS: FLUoxetine 20 MG CAP PO SCH (09:01)
--- NOTE | 2020-07-11 12:48 | HPEPDOC ---
[facility] Medical History & Physical Date of Admission Jul 10, 2020 Date of Service: Jul 11, 2020 Attending Physician: Laura Harris MD History and Physical MEDICINE CONSULT HISTORY OF PRESENT ILLNESS: Patient is a 24-year-old male with past history of depression who was admitted to [facility] on 07/10/2020 the chief complaint of suicidal ideation with plan. The patient has known history of depression. He has a recent inpatient mental health admission and follows with behavioral health as outpatient. 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 He denied having a plan. He was admitted to inpatient mental health for further evaluation. He does currently deny suicidal ideation, homicidal ideation, visual hallucinations, auditory hallucinations, chest pain, shortness of breath, paranoia, decreased sleep, decreased appetite, hopelessness. The patient made very little eye contact during evaluation and was cooperative. Physical exam was unremarkable. He denies recent stressors at home. REVIEW OF SYSTEMS: Neg except mentioned above PAST MEDICAL HISTORY: PAST SURGICAL HISTORY: Depression FAMILY HISTORY: patient does not know as he was adopted SOCIAL HISTORY: Denies smoking, illicit drug use. Drinks alcohol occasionally. Follows with behavioral health o/p . ALLERGIES: Please see below. HOME MEDICATIONS: Please see below. PHYSICAL EXAMINATION: VS: Please see below CONSTITUTIONAL: No acute distress, AAO x 3, minimal eye contact made during exam EYES: PERRLA, EOM intact HENT, MOUTH: Normocephalic, atraumatic, moist mucous membranes NECK: SUPPLE, no JVD, no lymphadenopathy, no carotid bruit CV: Regular rate and rhythm, S1S2 normal, no murmurs/rubs/gallops RESPIRATORY: Clear to auscultation bilaterally, no rales/rhonchi/wheezes GI: BS positive in 4 quadrants, soft, nontender, nondistended, no rebound or guarding, no organomegaly : Deferred MUSCULOSKELETAL: Normal ROM. No cyanosis, clubbing, swelling, joint deformity, extremity edema INTEGUMENTARY: multiple upper ext tattoos, otherwise intact, no rashes, no lesions, no erythema NEUROLOGIC: Cranial Nerves II-XII are intact, no focal deficits PSYCHIATRIC: Flat affect LABORATORY DATA: Please see below IMAGING: None ASSESSMENT: 24 y/o M admitted to [facility] for unspecified depressive disorder, SI. PLAN: Unspecified depressive disorder, suicidal ideation -Plan per psychiatric team DISPOSITION: Thank you kindly for this consult. At this time will sign off but if we are needed again, please feel free to call again at any time. Vital Signs Vital Signs Date Time Temp Pulse Resp B/P (MAP) Pulse Ox O2 Delivery O2 Flow Rate FiO2 07/11/20 02:25 97.5 56 16 133/80 (97) 98 Room Air Laboratory Data Labs 24H Laboratory Tests 2 07/10/20 15:53: Urine Opiates Screen NEGATIVE, Urine Methadone Screen NEGATIVE, Urine Barbiturates Screen NEGATIVE, Urine Phencyclidine Screen NEGATIVE, Urine Amphetamines Screen NEGATIVE, Urine Benzodiazepines Screen NEGATIVE, Urine Cocaine Metabolite Screen NEGATIVE, Urine Cannabinoids Screen NEGATIVE 07/10/20 18:26: Coronavirus (COVID-19)(PCR) NEGATIVE, Influenza Type A (RT-PCR) NEGATIVE, Influenza Type B (RT-PCR) NEGATIVE, Respiratory Syncytial Virus (PCR) NEGATIVE Home Medications Scheduled Divalproex Sodium (Divalproex Sodium ER) 250 Mg Tab.er.24h, 250 MG PO TID Fluoxetine Hcl (Fluoxetine HCl) 20 Mg Capsule, 20 MG PO DAILY Allergies Coded Allergies: amoxicillin (Verified Allergy, Intermediate, hives, 06/10/20) A-FIB/CHADSVASC A-FIB History Current/History of A-Fib/PAF?: No Current PO Anticoag Therapy: No Age/Risk Factor Scoring CHADSVASC: CHADSVASC Response (Comments) Value Age Risk Factor Age < 65 years old 0 Gender Risk Factor Male 0 Hx of CHF No 0 Hx of HTN No 0 Hx of Stroke/TIA/or VTE No 0 Hx of Diabetes No 0 Hx of Vascular Disease No 0 Total 0 Treatment Treatment ordered: NONE Other anticoagulant ordered: none Laura Harris MD Jul 11, 2020 12:48
[2020-07-11 17:47] VITALS: BP 140/80
[2020-07-12 06:46] VITALS: BP 110/56
[2020-07-12] MEDS: DIVALPROEX 250MG *ER* TAB PO SCH ×3 (09:46→20:38)
[2020-07-12] MEDS: FLUoxetine 20 MG CAP PO SCH (09:46)
--- NOTE | 2020-07-12 11:27 | MHHPE ---
[facility] HISTORY AND PHYSICAL DATE OF ADMISSION: 07/10/2020 DATE OF EVALUATION: 07/11/2020 HISTORY OF PRESENT ILLNESS: This patient presented to the emergency room stating that his therapist sent him to the hospital because he was suicidal but with no specific plan, but in the emergency room he said that he wished he could . He said that he was bored with life, and he was already denying that he had suicidal thoughts, but he appeared to be minimizing and he appeared to be very guarded. The patient admits that he thinks he has always been depressed but then he says his mood varies from a 4 to an 8/10. But on the other hand, he keeps insisting he does not think he needs to be in the hospital. The patient is prescribed Prozac and Depakote. He is not sure of the doses. But he says that the Depakote is for "mood swings". He does say that he had an episode where he was euphoric, reports with excess energy, decreased need for sleep, pressured speech and the patient is saying that he is not suicidal today. PAST PSYCHIATRIC HISTORY: He said he was hospitalized in 2016 for depression and suicidal ideations and that he had thoughts of jumping off a bridge. He says he has never actually made any suicidal attempts. FAMILY HISTORY: He says he was adopted. PAST MEDICAL HISTORY: The patient's past medical history is negative for medical problems. SUBSTANCE ABUSE HISTORY: Negative for any drugs or alcohol. REVIEW OF SYSTEMS: VITAL SIGNS: Blood pressure is 133/97, respirations are 16 and pulse 56. GENERAL APPEARANCE: He did not appear to be in any apparent distress. NEUROMUSCULAR SYSTEM: The patient's gait is normal. There were no involuntary movements noted. All other systems were reviewed and found to be negative. MENTAL STATUS EXAMINATION: The patient is alert and oriented times three. Eye contact is fair. Psychomotor activity is decreased. There is no formal thought disorder noted. His mood is depressed. Affect full range and appropriate. He is not psychotic. Insight and judgment are poor. DIAGNOSIS: Depressed disorder, recurrent, without psychotic symptoms. TREATMENT PLAN: At this point we will continue to treat this patient and evaluate him for depressive symptoms, for suicidal thoughts which he is denying at this point. And the patient will be further monitored. He is on Prozac 20 mg and Trazodone 50 mg and I recommended increasing the Prozac, but he said that he did not want to change the dose of his medication or the particular medication. MTDD
[2020-07-12 17:25] VITALS: BP 134/71
--- NOTE | 2020-07-12 19:46 | MHIPN ---
[facility] PROGRESS NOTE DATE: 07/12/2020 SUBJECTIVE: The patient today tells me that he is doing "fine." He says he slept. He describes his mood as good. He is somewhat guarded and has no complaints. MENTAL STATUS EXAMINATION: This patient is alert and oriented times three. Eye contact is fairly good. Psychomotor activity is decreased. He appears to be guarded. He responds with simple one or two word answers that appear to be appropriate. There is no formal thought disorder noted. He said his mood is good. His affect is flat. He is not psychotic and denies suicidal and homicidal ideations. Concentration is fair. Memory intact. Insight and judgment fair. DIAGNOSIS: Major depressive disorder, recurrent, without psychotic symptoms. Rule out Bipolar disorder. TREATMENT PLAN: At this point, the patient tells me that he is doing good. He is very guarded, though. I do not know if he is just minimizing everything because he wants to be discharged from the hospital, since he kept on saying there should not have been a reason for him to get admitted in the first place. However, he basically told me that he was very depressed for a long time and then told me that recently his mood has been anywhere from 4-8/10, where the closer to 10 is the most depressed, and then he told me that he is not depressed at all. Again, I do not know how reliable he is. He continues to feel that he does not want me to adjust his medications, so I have just continued the same dose of Depakote that he was on when he came in. [facility] MED[facility] CENTERArturo
[2020-07-13 06:41] VITALS: BP 137/69
[2020-07-13] MEDS: FLUoxetine 20 MG CAP PO SCH (09:11)
[2020-07-13] MEDS: DIVALPROEX 250MG *ER* TAB PO SCH ×3 (09:11→21:01)
--- NOTE | 2020-07-13 10:19 | WAPSY-INT ---
[facility] DATE OF ADMISSION: 07/11/2020 This is a continuation for an admission note. HISTORY OF PRESENT ILLNESS: In the Emergency Room he said that he was bored with life, and he was already denying that he had suicidal thoughts, but he appeared to be minimizing and he appeared to be very guarded. The patient admits that he thinks he has always been depressed but then he says his mood varies from a 4 to an 8/10. But on the other hand, he keeps insisting he does not think he needs to be in the hospital. The patient is prescribed Prozac and Depakote. He is not sure of the doses. But he says that the Depakote is for "mood swings". He does say that he had an episode where he was euphoric, reports with excess energy, decreased need for sleep, pressured speech and the patient is saying that he is not suicidal today. PAST PSYCHIATRIC HISTORY: He said he was hospitalized in 2016 for depression and suicidal ideations and that he had thoughts of jumping off a bridge. He says he has never actually made any suicidal attempts. FAMILY HISTORY: He says he was adopted. PAST MEDICAL HISTORY: The patient's past medical history is negative for medical problems. REVIEW OF SYSTEMS: VITAL SIGNS: Blood pressure is 133/97, respirations are 16 and pulse 56. GENERAL APPEARANCE: He did not appear to be in any apparent distress. NEUROMUSCULAR SYSTEM: The patient's gait is normal. There were no involuntary movements noted. All other systems were reviewed and found to be negative. MENTAL STATUS EXAMINATION: The patient is alert and oriented times three. Eye contact is fair. Psychomotor activity is decreased. There is no formal thought disorder noted. His mood is depressed. Affect full range and appropriate. He is not psychotic. Insight and judgment are poor. DIAGNOSIS: Depressed disorder, recurrent, without psychotic symptoms. TREATMENT PLAN: At this point we will continue to treat this patient and evaluate him for depressive symptoms, for suicidal thoughts which he is denying at this point. And the patient will be further monitored. He is on Prozac 20 mg and 50 mg and I recommended increasing the Prozac, but he said that he did not want to change the dose of his medication or the particular medication.
[2020-07-13 16:37] VITALS: BP 140/77
[2020-07-14 06:25] VITALS: BP 140/66
[2020-07-14] MEDS: FLUoxetine 20 MG CAP PO SCH (08:25)
[2020-07-14] MEDS: DIVALPROEX 250MG *ER* TAB PO SCH (08:25)
--- NOTE | 2020-07-14 09:50 | MHIPN ---
PROGRESS NOTE DATE: 07/13/2020 SUBJECTIVE: I am sad and depressed. 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 He expressed it to his therapist. He was recently discharged from the hospital. MENTAL STATUS EXAMINATION: He is casually dressed in hospital gown. Cooperative. Made poor eye contact. Speech rate and volume are good. Thought process linear, goal directed. Thought content; no active suicidal thoughts. His insight and judgment are poor. Mood is depressed. Affect is constricted. DIAGNOSIS: Depressive disorder not otherwise specified. Vital signs: Temperature 97.8, pulse 81, respiratory rate 16, blood pressure 140/77, pulse oximetry 97%. CBC within normal limits. ASSESSMENT: Patient continues to be depressed. PLAN: Continue: 1. Fluoxetine 20 mg once daily. 2. Trazodone 50 mg at night p.r.n. 3. Depakote 250 mg t.i.d. ESTIMATED LENGTH OF STAY: 4 to 5 days.
[2020-07-14] MEDS ORDERED: TRAZ-252 PO (12:10)
[2020-07-14] MEDS ORDERED: DEPA250T2 PO (12:10)
--- NOTE | 2020-07-14 12:22 | MHDS ---
[facility] DISCHARGE SUMMARY DATE OF ADMISSION: 07/10/2020 DATE OF DISCHARGE: 07/14/2020 DIAGNOSIS: Major depressive disorder. 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 Patient has a history of depression in the past and prior psychiatric hospitalization as well. For details of history of present illness, past psychiatric history, substance abuse history, legal history, medical history, social history, family history, please refer to the initial evaluation. COURSE IN THE HOSPITAL: Patient initially was depressed and isolative. He was placed on fluoxetine 20 mg once daily and trazodone 50 mg at night. He was provided with individual, group and milieu therapy. He was encouraged to notify the staff if he had any suicidal or homicidal ideas. Patient made quick recovery. His mood improved. He was relating well with the staff. No behavioral problems on the unit. He attended groups. Denied any side effects from the medication. Denied any suicidal or homicidal ideas. MENTAL STATUS EXAMINATION: Casually dressed, cooperative, made good eye contact. Speech rate, rhythm and volume are good. Mood is euthymic. Affect is full range. Thought process: Linear and goal-directed. Thought content: Denies any delusions, suicidal or homicidal ideas. Denies any auditory or visual hallucinations. He is oriented to time, place and person. Memory is intact. Insight and judgment is good. VITAL SIGNS: Temperature 98.7, pulse 60, respiratory rate 18, blood pressure 140/66, pulse oximetry 97. LABORATORY DATA: CBC within normal limits. Chemistry: CMP within normal limits. Toxicology was negative. MEDICATIONS AT DISCHARGE: - fluoxetine 20 mg once daily - trazodone 50 mg at night as needed - Depakote 250 mg three times a day DISCHARGE INSTRUCTIONS: Patient will be discharged to [place]. Follow up at [facility].
== END 2020-07-14 13:40 | disposition home or self-care (01) | DRG 881 ==
LOC: M ED 11:05 → EDBD 11:05 → M ED INP 11:06 → M PSY 07-11 02:21
PROVIDERS: ADMIT Psychiatry & Neurology Psychiatry; ATTEND Psychiatry & Neurology Psychiatry
DX: F32.9 Major depressive disorder, single episode, unspecified (principal); R45.851 Suicidal ideations; Z79.899 Other long term (current) drug therapy; Z88.1 Allergy status to other antibiotic agents; Z20.822 Contact with and (suspected) exposure to COVID-19